=== PATIENT | female | born 1980 | race Caucasian/White ===

== ENCOUNTER 2017-06-09 13:04 | Emergency (ER) | payer OTHER ==
[~2017-06-09] VITALS: Ht 158.8 cm; Wt 82.5 kg
--- NOTE | ~2017-06-09 | US67 ---
[facility] A Service [facility] RADIOLOGY TEXT RESULTS PATIENT: QUIN CERVANTES LOCATION: SED : 80 UNIT #: [id number] AGE: [address]: Harper Irizarry MD SEX: F ORDER DR: [id number] [place] [id number] E MR#: [id number] Acc #: [id number] NAME: QUIN CERVANTES : 1980 SEX: F STUDY DATE/TIME: 06/09/2017 13:51 UNIT: SED ROOM: STUDY DESCRIPTION: Gallbladder Attending Physician: Harper Irizarry M.D. Ordering Physician: Harper Irizarry M.D. Primary Care Physician: Angel Subramanian M.D. MEDICAL IMAGING REPORT This report is preliminary unless electronic signature is present. EXAM Right upper quadrant ultrasound, 06/09/2017. COMPARISON CT abdomen and pelvis 11/22/2016. CLINICAL HISTORY One day history of right upper quadrant pain with nausea and vomiting. FINDINGS Hepatic parenchymal echotexture is normal. There is no mass or intrahepatic biliary ductal dilatation. The right kidney appears normal. The gallbladder is normal without stone, wall thickening, or pericholecystic fluid. Common duct is normal in caliber, about 4 mm in the hilum. IMPRESSION Normal negative right upper quadrant ultrasound. Dictated by... Hany Rehman M.D. THIS IS AN ELECTRONICALLY VERIFIED REPORT Hany Rehman M.D. at 06/13/2017 4:09 PM TEV/nash TD: 06/09/2017 21:26 JOB #: [id number] MEDICAL IMAGING REPORT [facility] A Service [facility] RADIOLOGY TEXT RESULTS PATIENT: QUIN CERVANTES LOCATION: SED : 80 UNIT #: [id number] AGE: [address]: Harper Iriazrry MD SEX: F ORDER DR: Page 1 of 1
[~2017-06-09 13:04] MED LIST: DICYCLOMINE HCL20 MG PO; DIFLUCAN PO; EC-NAPROSYN500 MG PO; LORTAB 5/500 TA1 TA1 PO; NEURONTIN PO; NO MEDICATIONS; PENICILLIN V P500 MG PO; TYLENOL #3 PO; VOLTAREN75 MG PO
[2017-06-09 13:49] LABS: BASOPHIL# 0.1 X10e3 (0-0.3); BASOPHIL% 0.7 % (0-2.5); EOSINOPHIL# 0.2 X10e3 (0-0.7); EOSINOPHIL% 1.7 % (0.0-7.0); HEMATOCRIT 40.3 % (35.0-45.0); HEMOGLOBIN 14.1 gm/dL (12.0-16.0); LYMPHOCYTE# 2.8 X10e3 (1.0-3.5); LYMPHOCYTE% 27.6 % (17.0-45.0); MEAN CELL VOLUME 93.1 FL (83-96); MEAN CORPUSCULAR HEMOGLOBIN 32.5 PG (28-34); MEAN CORPUSCULAR HGB CONC 34.9 g/dL (30-36); MEAN PLATELET VOLUME 7.5 FL (6.5-11.5); MONOCYTE# 0.5 X10e3 (0-1.0); MONOCYTE% 5.2 % (3.0-12.0); NEUTROPHIL# 6.6 X10e3 (1.5-7.1); NEUTROPHIL% 64.8 % (40-75); PLATELET COUNT 373 X10e3 (140-420); RED BLOOD COUNT 4.33 X10e (3.90-5.30); RED CELL DISTRIBUTION WIDTH 13.1 % (11.0-15.5); WHITE BLOOD COUNT 10.2 X10e3 (4.0-10.5)
[2017-06-09 13:50] LABS: DIFF IND NO; URINE APPEARANCE CLEAR; URINE BILIRUBIN NEG (NEG); URINE BLOOD NEG (NEG); URINE COLOR YELLOW; URINE GLUCOSE NEG (NORM); URINE KETONE NEG (NEG); URINE LEUKOCYTE ESTERASE NEG (NEG); URINE NITRATE NEG (NEG); URINE PROTEIN NEG (NEG); URINE SOURCE CLEAN CATCH; URINE SPECIFIC GRAVITY 1.025 (1.003-1.035); URINE UROBILINOGEN 0.2 MG/DL (NORM)
[2017-06-09 13:51] LABS: MICRO INDICATED? NO
[2017-06-09 15:25] LABS: ALBUMIN SERUM 4.3 g/dL (3.5-5.0); ALKALINE PHOSPHATASE 47 U/L (32-92); ALT (SGPT) 19 U/L (10-40); AMYLASE 28 U/L (0-46); AST (SGOT) 19 U/L (10-42); BILIRUBIN, DIRECT <0.1 mg/dL (0.0-0.2); BILIRUBIN,INDIRECT 0.1 mg/dL (0.0-0.9); BILIRUBIN,TOTAL 0.2 mg/dL (0.2-2.0); BLOOD UREA NITROGEN 10 mg/dL (9-23); BUN/CREATININE RATIO 16.66; CALCIUM SERUM 8.9 mg/dL (8.4-10.2); CARBON DIOXIDE 24 mmol/L (22-31); CHLORIDE 108 mmol/L (100-111); CREATININE SERUM 0.6 mg/dL (0.6-1.4); GLOM FILT RATE Estimated 116.4 mL/min (>60); GLUCOSE FASTING 89 mg/dL (70-110); LIPASE 29 U/L (22-51); POTASSIUM 3.8 mmol/L (3.5-5.1); PROTEIN TOTAL SERUM 7.6 g/dL (6.0-8.3); SODIUM 133 mmol/L (135-145)
== END 2017-06-09 15:50 | disposition home or self-care (01) ==
LOC: SED 13:04
PROVIDERS: Student in an Organized Health Care Education/Training Program
DX: R10.11 Right upper quadrant pain (principal); R11.2 Nausea with vomiting, unspecified; R19.7 Diarrhea, unspecified; M19.90 Unspecified osteoarthritis, unspecified site; F17.200 Nicotine dependence, unspecified, uncomplicated
CPT/HCPCS: 36415; 76705; 80048; 80076; 81003; 82150; 83690; 84703; 85025; 99284